=== PATIENT | male | born 1945 | race Caucasian/White ===

== ENCOUNTER → 2017-09-06 | Outpatient (CLI) | payer OTHER | END | disposition home or self-care (01) | LOC: PCVCIMAG 14:16 | DX: I73.9 Peripheral vascular disease, unspecified (principal); I70.8 Atherosclerosis of other arteries | CPT/HCPCS: 93925 ==

== ENCOUNTER → 2017-09-13 | Outpatient (CLI) | payer OTHER ==
[~2017-09-13] MED LIST: CLOPIDOGREL BISULFATE 75 MG TABLET; DIAZEPAM 10 MG TABLET.; HEPARIN SODIUM 5,000 UNIT/ML VIAL for PCVC.; IODIXANOL 270 MG/ML 100 ML VIAL.; IV NORMAL SALINE 500ML BAG 500 ML; LIDOCAINE 1%/EPI 1:100,000 20 ML VIAL.; MIDAZOLAM HCL/PF 2 MG/2 ML VIAL.; PROTAMINE 50 MG/5 ML VIAL. IV; WATER FOR INJECTION,STERILE 20 ML VIAL. IJ; ceFAZolin SODIUM 1 GM VIAL; fentaNYL PF VIAL 100 MCG/2 ML VIAL; hydrALAZINE 20 MG/ML VIAL.
== END ==
LOC: PCVCINTER 07:38
DX: I70.202 Unspecified atherosclerosis of native arteries of extremities, left leg (principal); I70.1 Atherosclerosis of renal artery; I25.10 Atherosclerotic heart disease of native coronary artery without angina pectoris; I70.0 Atherosclerosis of aorta
CPT/HCPCS: 36252; 37228; 75716; 76937; 99152; 99153; C1751; C1769; C1887; C1894; J0360; J0690; J1644; J2250; J3010; J3490; J7040

== ENCOUNTER → 2017-09-17 | Outpatient (CLI) | payer BC, OTHER ==
[~2017-09-17] MED LIST changes: +ASPIRIN 325 MG TABLET; +EPTIFIBATIDE BOLUS 2,000 MCG/ML 10ML VIAL. IV; -PROTAMINE 50 MG/5 ML VIAL. IV
== END ==
LOC: PCVCINTER 10:39
DX: I70.211 Atherosclerosis of native arteries of extremities with intermittent claudication, right leg (principal); I10 Essential (primary) hypertension
CPT/HCPCS: 37186; 37231; 76937; 99152; 99153; C1725; C1751; C1757; C1760; C1769; C1876; C1885; C1894; J0360; J0690; J1327; J1644; J2250; J3010; J3490; J7040

== ENCOUNTER → 2017-10-03 | Outpatient (CLI) | payer BC | END | disposition home or self-care (01) | LOC: PCVCIMAG 16:07 | DX: I73.9 Peripheral vascular disease, unspecified (principal) | CPT/HCPCS: 93926 ==

== ENCOUNTER → 2017-12-19 | Outpatient (CLI) | payer BC ==
--- NOTE | 2017-12-19 16:29 | PCVCIMAG ---
EXAM: LEFT LOWER EXTREMITY ARTERIAL DUPLEX INDICATION: Peripheral Arterial Disease. Leg pain. FINDINGS: Left Leg: Common femoral profunda femoral arteries are patent. Superficial femoral artery and popliteal artery are patent. Known occlusion throughout the anterior tibial artery is unchanged. Multiple high-grade stenoses in the posterior tibial artery again seen. Segmental occlusion upper peroneal artery unchanged. IMPRESSION: Unchanged segment occlusion upper left peroneal artery. Unchanged occlusion left anterior tibial artery. Unchanged multiple high-grade stenoses left posterior tibial artery. LOC:[id number]
== END | disposition home or self-care (01) ==
LOC: PCVCIMAG 16:00
PROVIDERS: ATTEND Nuclear Medicine Nuclear Cardiology
DX: E11.51 Type 2 diabetes mellitus with diabetic peripheral angiopathy without gangrene (principal); I73.9 Peripheral vascular disease, unspecified
CPT/HCPCS: 93926

== ENCOUNTER → 2018-05-21 | Outpatient (CLI) | payer BC, MEDICARE ==
--- NOTE | 2018-05-21 09:53 | PCVCIMAG ---
EXAM: RIGHT LOWER EXTREMITY ARTERIAL DUPLEX INDICATION: Peripheral Arterial Disease. Leg pain. FINDINGS: Right Leg: Common femoral and profunda femoral arteries are patent. Superficial femoral artery and popliteal artery are patent. Previous stent tibioperoneal trunk/proximal peroneal artery maintaining good patency. Unchanged occlusion throughout the anterior and posterior tibial arteries. IMPRESSION: Unchanged occlusion right anterior and posterior tibial arteries. Previous right tibioperoneal trunk/proximal peroneal artery stent maintaining good patency. LOC:[id number]
== END | disposition home or self-care (01) ==
LOC: PCVCIMAG 08:01
PROVIDERS: ATTEND Nuclear Medicine Nuclear Cardiology
DX: I73.9 Peripheral vascular disease, unspecified (principal); E11.42 Type 2 diabetes mellitus with diabetic polyneuropathy; I10 Essential (primary) hypertension; E78.00 Pure hypercholesterolemia, unspecified; F17.200 Nicotine dependence, unspecified, uncomplicated; Z79.4 Long term (current) use of insulin; Z79.82 Long term (current) use of aspirin
CPT/HCPCS: 93926; G0463

== ENCOUNTER → 2018-11-18 | Outpatient (CLI) | payer MEDICARE ==
--- NOTE | 2018-11-18 10:05 | PCVCIMAG ---
EXAM: BILATERAL CAROTID DUPLEX INDICATION: Carotid Occlusive Disease. FINDINGS: Doppler Measurements (centimeters per second): RIGHT: Peak CCA-71, Peak ECA-91, Diastolic ICA-17, Peak ICA-73, ICA/CCA Ratio-1.0. LEFT: Peak CCA-75, Peak ECA-84, Diastolic ICA-19, Peak ICA-85, ICA/CCA Ratio-1.1. RIGHT CAROTID: The carotid bulb has moderate plaque. The proximal internal carotid artery shows <40% stenosis. The common carotid artery shows no significant stenosis. The external carotid artery shows no significant stenosis. LEFT CAROTID: The carotid bulb has mild plaque. The proximal internal carotid artery shows <40% stenosis. The common carotid artery shows no significant stenosis. The external carotid artery shows no significant stenosis. Antegrade flow in both vertebral arteries. IMPRESSION: <40% stenosis of the right internal carotid artery with moderate plaque. <40% stenosis of the left internal carotid artery with mild plaque. LOC:[place] [id number]
--- NOTE | 2018-11-18 10:30 | PCVCIMAG ---
EXAM: BILATERAL LOWER EXTREMITY ARTERIAL DUPLEX INDICATION: Peripheral Arterial Disease. Leg pain. FINDINGS: Right Leg: Common femoral and profunda femoral arteries are patent. Superficial femoral artery and popliteal artery are patent. Unchanged occlusion of the anterior and posterior tibial arteries. Previous stent tibioperoneal trunk/proximal peroneal artery maintaining good patency. Peroneal artery is patent. Left Leg: Common femoral profunda femoral arteries are patent. Superficial femoral artery and popliteal artery are patent. Occlusion of the anterior and posterior tibial arteries and tibioperoneal trunk is unchanged. Refilling of the peroneal artery. IMPRESSION: Previous right tibioperoneal trunk stent maintaining good patency. Unchanged occlusion of the right anterior and posterior tibial arteries. Unchanged occlusion of the left anterior and posterior tibial arteries, and left tibioperoneal trunk. LOC:[id number]
--- NOTE | 2018-11-18 10:33 | PCVCIMAG ---
EXAM: ULTRASOUND OF THE THYROID INDICATION: Thyroid nodules. FINDINGS: The right thyroid lobe measures 4.2 x 1.7 x 2.5 cm. The left thyroid lobe measures 4.3 x 1.7 x 2.3 cm. There are couple of tiny cysts in the mid and upper right thyroid lobe of doubtful clinical significance. There is a 0.6 x 0.9 x 1.0 cm partially cystic/partially solid nodule in the mid left thyroid lobe. Interval follow-up is suggested. IMPRESSION: Thyroid is normal in size. There are couple of tiny benign cyst in the right thyroid lobe. 1.0 cm partially solid/partly cystic nodule mid left thyroid lobe. LOC:[id number]
== END | disposition home or self-care (01) ==
LOC: PCVCIMAG 09:50
PROVIDERS: ATTEND Nuclear Medicine Nuclear Cardiology
DX: I65.23 Occlusion and stenosis of bilateral carotid arteries (principal); E04.1 Nontoxic single thyroid nodule
CPT/HCPCS: 76536; 93880; 93925; G0463